=== PATIENT | female | born 2000 | race Native Hawaiian/Other Pacific Islander ===

== ENCOUNTER 2022-02-12 21:30 | Emergency (ER) | payer SELFPAY ==
[2022-02-12 21:35] VITALS: BP 149/104; PULSE 104; RESP 20; TEMP 36.8; O2SAT 98; BMI 33.7
[2022-02-12 22:12] LABS: Basophils % 0.3 %; Eosinophils # 0.1 10^3/uL (0.0-0.8); Eosinophils % 0.7 %; Hematocrit 42.2 % (37.0-47.0); Hemoglobin 13.9 g/dL (11.5-15.3); Lymphocytes # 4.1 10^3/uL (1.5-6.5); Lymphocytes % 31.7 %; Mean Corpuscular HGB Conc 32.9 g/dL (30.0-36.0); Mean Corpuscular Hemoglobin 27.3 pg (28.0-34.0); Mean Corpuscular Volume 82.9 fl (81-99); Mean Platelet Volume 9.9 fL (7.4-10.4); Monocytes # 0.8 10^3/uL (0.2-0.9); Monocytes % 6.5 %; Neutrophils # 7.86 10^3/uL (1.8-8.0); Neutrophils % 60.3 %; Nucleated Red Blood Cells % 0 %; Platelet Count 313 10^3/cmm (130-400); Red Blood Count 5.09 10^6/uL (4.1-5.3); Red Cell Distribution Width 12.9 % (12.1-15.1)
[2022-02-12 22:29] LABS: Alanine Aminotransferase 15 U/L (0-33); Albumin Level 4.6 g/dL (3.5-5.2); Alkaline Phosphatase 88 U/L (35-105); Anion Gap 13.7 (5-19); Aspartate Amino Transferase 13 U/L (0-32); Blood Urea Nitrogen 13 mg/dL (6-20); Calcium 9.1 mg/dL (8.5-10.5); Carbon Dioxide 25 mmol/L (22-29); Chloride 103 mmol/L (98-107); Globulin 2.4 g/dL (1.3-4.6); Glomerular Filtration Rate 107.8 mL/min (90-130); Glucose 111 mg/dL (65-115); Lipase 36 U/L (13-60); Osmolality Calculated 287 mOsm/kg (285-295); Potassium 3.7 mmol/L (3.5-5.1); Sodium 138 mmol/L (136-145); Total Bilirubin 0.2 mg/dL (0.15-1.2)
[2022-02-12 22:31] LABS: Urine Appearance Clear (CLEAR); Urine Color Yellow (Yellow); pH Urine 6 (5-7)
[2022-02-12 22:32] LABS: Add Urine Culture? No; Add Urine Microscopic? YES; Bacteria Urine TRACE /hpf; Bilirubin Urine Neg (Negative); Blood Urine 2+ (Negative); Glucose Urine UA Norm (Normal); Ketones Urine Negative (Negative); Leukocyte Esterase Urine Negative (Negative); Nitrate Urine Negative (Negative); Protein Urine Neg (Negative); RBC Urine 15-25 /hpf (0-2); Squamous Epithelial Cell Urine 0-4 /hpf (0-5); Urobilinogen Urine Norm (Negative); WBC Urine 0-4 /hpf (0-5)
--- NOTE | 2022-02-12 22:32 | CTR_ITS ---
PROCEDURE INFORMATION: Exam: CT Abdomen And Pelvis Without Contrast Exam date and time: 02/12/2022 10:38 PM Age: 21 years old Clinical indication: Abdominal pain; Right; Patient HX: C/O RT flank pain; Additional info: Right side CVA tenderness concern for renal stone. TECHNIQUE: Imaging protocol: Computed tomography of the abdomen and pelvis without contrast. Radiation optimization: All CT scans at this facility use at least one of these dose optimization techniques: automated exposure control; mA and/or kV adjustment per patient size (includes targeted exams where dose is matched to clinical indication); or iterative reconstruction. COMPARISON: No relevant prior studies available. RADIATION DOSE METRICS: Total DLP (mGy-cm): 616.08 FINDINGS: Liver: Normal. No mass. Gallbladder and bile ducts: Normal. No calcified stones. No ductal dilation. Pancreas: Normal. No ductal dilation. Spleen: Normal. No splenomegaly. Adrenal glands: Normal. No mass. Kidneys and ureters: Mild right hydronephrosis and hydroureter without obstructing lesion may reflect sequelae of a recently passed calculus. Stomach and bowel: Unremarkable. No obstruction. No mucosal thickening. Appendix: No evidence of appendicitis. Intraperitoneal space: Unremarkable. No free air. No significant fluid collection. Vasculature: Unremarkable. No abdominal aortic aneurysm. Lymph nodes: Scattered prominent subcentimeter lymph nodes in the abdomen, nonspecific. Urinary bladder: Unremarkable as visualized. Reproductive: Unremarkable as visualized. Bones/joints: Unremarkable. No acute fracture. Soft tissues: Unremarkable. Other findings: Trace nonspecific fluid in the pelvis. CT/CT kidney stone [id number] IMPRESSION: 1. Mild right hydronephrosis and hydroureter without obstructing lesion may reflect sequelae of a recently passed calculus. 2. Trace nonspecific fluid in the pelvis. 3. Scattered prominent subcentimeter lymph nodes in the abdomen, nonspecific.
[2022-02-12] MEDS: ketorolac 30 mg/mL INJ IVP (22:39)
--- NOTE | 2022-02-12 23:02 | W.ED.ABDPA2 ---
HPI - Abdominal Pain General: Chief Complaint: Abdominal Pain Stated Complaint: Stomach Hurts Time Seen by Provider: 02/12/22 21:48 History of Present Illness: Patient reports that she started having abdominal pain at approximately 3 PM today. She reports it was sudden onset. She denies that she has had any nausea, vomiting, diarrhea associated. She denies fevers or chills. She denies ever having pain like this before. She denies any recent abdominal trauma. She denies any possibility of . Associated Symptoms: Denies chills, constipation, diarrhea, dysuria, fever(s), nausea and vomiting Related Data: Date of Last Menstrual Period: 01/29/22 Review of Systems Const: Denies: fever(s) or chills Card: Denies: chest pain or palpitations Resp: Denies: dyspnea, productive cough, non-productive cough or wheezing GI: Reports: abdominal pain; Denies: nausea, vomiting, diarrhea or constipation : Denies: flank pain, difficulty voiding, dysuria or urinary urgency [facility] Female Reproductive History: Date of last menstrual period: 01/29/22 Physical Exam Const: COMMON NORMALS: patient oriented x3 and alert OTHER: Patient appears to be in obvious pain Resp: COMMON NORMALS: normal respiratory effort, No use of accessory muscles and clear to auscultation bilaterally AUSCULTATION: clear to auscultation bilaterally Cardio: COMMON NORMALS: regular rate (Slight tachycardia), regular rhythm, S1 normal heart sound present, S2 normal heart sound present and No murmurs present (Cardio) RATE: regular rate (Slight tachycardia) RHYTHM: regular rhythm HEART SOUNDS: S1 normal heart sound present and S2 normal heart sound present GI: COMMON NORMALS: Normal to inspection, nondistended, normoactive bowel sounds present, Soft to palpation and non-tender PALPATION: Yes Soft to palpation : BLADDER/KIDNEY EXAM: Yes CVA tenderness on the right Back/Pelvis: GENERAL BACK: Yes CVA tenderness Neuro: COMMON NORMALS: patient oriented x3 SENSORIUM/ORIENTATION: Yes alert Course Vital Signs: Vital signs: Vital Signs Temperature 98.3 F 02/12/22 21:35 Pulse Rate 70 02/12/22 23:56 Respiratory Rate 16 02/12/22 23:56 Blood Pressure 129/62 02/12/22 23:56 Pulse Oximetry 99 02/12/22 23:56 Oxygen Delivery Me thod 02/12/22 21:35 MDM - Abdominal Pain Medical Decision Making Patient is in today for sudden onset abdominal pain starting at 3 PM today. She denies any associated symptoms of the abdominal pain. She has not taken anything for the pain. Patient does not have tenderness to palpation on exam of the abdomen. She does not have any guarding tenderness or rebound tenderness. She is negative for McBurney's point tenderness she is negative for Bañuelos sign. She does have right-sided CVA tenderness. Urine is positive for 2+ blood. CT shows some mild right hydronephrosis and hydroureter without obstruction. Suggested could be sequela of a recently passed calculus. Scattered prominent subcentimeter lymph nodes in the abdomen nonspecific. Patient reports being pain-free after Toradol. She does not wish to have any IV fluids. She is requesting to be discharged home. We discussed the results of the CT scan. Advised of conservative treatment at home. Follow-up with primary care as needed. Return to the ER as needed for new or worsening symptoms. Lab Data : 02/12/22 22:06 02/12/22 22:06 Labs/Radiology: Radiology Impressions Abdomen/Pelvis CT 02/12/22 22:32 IMPRESSION: 1. Mild right hydronephrosis and hydroureter without obstructing lesion may reflect sequelae of a recently passed calculus. 2. Trace nonspecific fluid in the pelvis. 3. Scattered prominent subcentimeter lymph nodes in the abdomen, nonspecific. Laboratory Results WBC 13.0 10^3/uL (4.5-13.0) 02/12/22 22:06 RBC 5.09 10^6/uL (4.1-5.3) 02/12/22 22:06 Hgb 13.9 g/dL (11.5-15.3) 02/12/22 22:06 Hct 42.2 % (37.0-47.0) 02/12/22 22:06 MCV 82.9 fl (81-99) 02/12/22 22:06 MCH 27.3 pg (28.0-34.0) L 02/12/22 22:06 MCHC 32.9 g/dL (30.0-36.0) 02/12/22 22:06 RDW 12.9 % (12.1-15.1) 02/12/22 22:06 Plt Count 313 10^3/cmm (130-400) 02/12/22 22:06 MPV 9.9 fL (7.4-10.4) 02/12/22 22:06 Neut % (Auto) 60.3 % 02/12/22 22:06 Lymph % (Auto) 31.7 % 02/12/22 22:06 [place] % (Auto) 6.5 % 02/12/22 22:06 Eos % (Auto) 0.7 % 02/12/22 22:06 Baso % (Auto) 0.3 % 02/12/22 22:06 Neut # (Auto) 7.86 10^3/uL (1.8-8.0) 02/12/22 22:06 Lymph # (Auto) 4.1 10^3/uL (1.5-6.5) 02/12/22 22:06 [place] # (Auto) 0.8 10^3/uL (0.2-0.9) 02/12/22 22:06 Eos # (Auto) 0.1 10^3/uL (0.0-0.8) 02/12/22 22:06 Baso # (Auto) 0.0 10^3/uL (0.0-0.1) 02/12/22 22:06 Nucleated RBC % (auto) 0 % 02/12/22 22:06 Nucleated RBCs # 0.0 /100WBC 02/12/22 22:06 Sodium 138 mmol/L (136-145) 02/12/22 22:06 Potassium 3.7 mmol/L (3.5-5.1) 02/12/22 22:06 Chloride 103 mmol/L (98-107) 02/12/22 22:06 Carbon Dioxide 25 mmol/L (22-29) 02/12/22 22:06 Anion Gap 13.7 (5-19) 02/12/22 22:06 BUN 13 mg/dL (6-20) 02/12/22 22:06 Creatinine 0.7 mg/dL (0.5-0.9) 02/12/22 22:06 GFR Calculation 107.8 mL/min (90-130) 02/12/22 22:06 Glucose 111 mg/dL (65-115) 02/12/22 22:06 Calculated Osmolality 287 mOsm/kg (285-295) 02/12/22 22:06 Calcium 9.1 mg/dL (8.5-10.5) 02/12/22 22:06 Total Bilirubin 0.2 mg/dL (0.15-1.2) 02/12/22 22:06 AST 13 U/L (0-32) 02/12/22 22:06 ALT 15 U/L (0-33) 02/12/22 22:06 Alkaline Phosphatase 88 U/L (35-105) 02/12/22 22:06 Total Protein 7.0 g/dL (6.6-8.7) 02/12/22 22:06 Albumin 4.6 g/dL (3.5-5.2) 02/12/22 22:06 Globulin 2.4 g/dL (1.3-4.6) 02/12/22 22:06 Lipase 36 U/L (13-60) 02/12/22 22:06 Urine Color Yellow (Yellow) 02/12/22 22:14 Urine Appearance Clear (CLEAR) 02/12/22 22:14 Urine pH 6 (5-7) 02/12/22 22:14 Ur Specific [place] 1.020 (1.005-1.030) 02/12/22 22:14 Urine Protein Neg (Negative) 02/12/22 22:14 Urine Glucose (UA) Norm (Normal) 02/12/22 22:14 Urine Ketones Negative (Negative) 02/12/22 22:14 Urine Blood 2+ (Negative) H 02/12/22 22:14 Urine Nitrate Negative (Negative) 02/12/22 22:14 Urine Bilirubin Neg (Negative) 02/12/22 22:14 Urine Urobilinogen Norm mg/dL (Negative) 02/12/22 22:14 Ur Leukocyte Esterase Negative (Negative) 02/12/22 22:14 Urine RBC 15-25 /hpf (0-2) H 02/12/22 22:14 Urine WBC 0-4 /hpf (0-5) H 02/12/22 22:14 Ur Squamous Epith Cells 0-4 /hpf (0-5) H 02/12/22 22:14 Amorphous Sediment Not Reportable 02/12/22 22:14 Urine Bacteria Trace /hpf (NONE) 02/12/22 22:14 Urine HCG, Qual Negative (Negative) 02/12/22 22:14 Discharge Plan Discharge Patient Disposition: Home Clinical Impression: Right flank pain, Renal colic Condition: Stable Prescriptions: New cephalexin 500 mg capsule 500 mg PO BID 7 Days Qty: 14 0RF Discharge Orders: Discharge ED (Routine); Ordered 02/12/22 Ordered By: Sayra Albright Referrals: Stew Morgan MD [Primary Care Provider] - Discharge Diet: Usual diet Discharge Activity: Increase activity as tolerated Patient Instructions: Renal Colic (ED), Abdominal Pain (ED) Activity Restrictions/Additional Instructions: Take antibiotic as directed starting tomorrow. Starting tomorrow you may take ibuprofen every 8 hours as needed for pain. Be sure to take this medication with food so that you do not get an ulcer. Follow-up with primary care provider as needed. Return to the ER for any new or worsening symptoms. Coding Level of Care Code ED Tool [employer] Fwd Exam Detailed
[2022-02-12] MEDS: cephALEXin 500 mg Capsule PO (23:48)
[2022-02-12 23:56] VITALS: BP 129/62; PULSE 70; RESP 16; O2SAT 99
== END 2022-02-12 23:57 | disposition home or self-care (01) ==
PROVIDERS: Emergency Provider Nurse Practitioner Family; PCP Family Medicine
DX: N23 Unspecified renal colic (principal)
CPT/HCPCS: 74176; 80053; 81001; 81025; 83690; 85025; 96374; 99285; J1885